=== PATIENT | female | born 1945 | race African-American/Black ===

== ENCOUNTER 2023-08-31 19:55 | Inpatient (IN) | payer MEDICARE, BC ==
[~2023-08-31] VITALS: Ht 157.5 cm; Wt 54.9 kg
[~2023-08-31 19:55] MED LIST: ACET-2708 MT; APIX2.5T PO; ASCO500C18 PO; CARV25TA47 PO; DILT120C11 PO; DOCU-150 PO; FERR325T6 PO; FOLI-43 PO; MEGE400O6 PO; PANT40TA51 PO; TOPUD PO
[2023-08-31] MEDS: SODIUM CHLORIDE 0.9% 1000ML BAG (SEPSIS BOLUS) IV ONE (20:30)
[2023-08-31 20:43] LABS: BASOPHILS % 0.8 % (0.0-2.0); EOSINOPHILS % 0.8 % (0.0-5.0); HEMATOCRIT. 31.7 % (36.0-48.0); HEMOGLOBIN. 9.6 g/dL (12.0-16.0); MEAN CORPUSCULAR HGB CONC 30.3 g/dL (31.0-37.0); MONOCYTES % 6.8 % (2.0-8.0); NEUTROPHILS % 83.6 % (40.0-76.0); POTASSIUM 4.9 mEq/L (3.5-5.1); RED BLOOD CELL COUNT 4.01 mill/uL (4.2-5.4); RED CELL DISTRIBUTION WIDTH 20.5 % (11.6-14.6); WHITE BLOOD COUNT 7.8 x1000/uL (4.5-11.0)
[2023-08-31 20:44] LABS: CALCIUM 11.9 mg/dL (8.7-10.4)
[2023-08-31 20:45] LABS: DIFFERENTIAL COMMENT 1
[2023-08-31 20:49] LABS: CREATININE 1.1 mg/dL (0.6-1.0)
[2023-08-31 20:56] LABS: PROTHROMBIN TIME 11.4 sec (9.6-11.0)
[2023-08-31 21:12] LABS: MEAN PLATELET VOLUME 10.7 fl (7.4-10.4); PLATELET 57 x1000/uL (130-400)
[2023-08-31] MEDS: VANCOMYCIN 1G PREMIX 200 ML IV ONE (21:29)
[2023-08-31 21:41] LABS: CLARITY URINE TURBID (CLEAR); COLOR URINE YELLOW (YELLOW); GLUCOSE URINE NEGATIVE (NEGATIVE); KETONES URINE NEGATIVE (NEGATIVE); LEUKOCYTE ESTERASE URINE 3+ (NEGATIVE); NITRITE URINE NEGATIVE (NEGATIVE); OCCULT BLOOD URINE 3+ (NEGATIVE); PROTEIN URINE 2+ (NEGATIVE); SPECIFIC GRAVITY URINE 1.018 (1.005-1.030); UROBILINOGEN URINE 0.2 E.U./dL (0.2-1.0)
[2023-08-31 21:57] LABS: BACTERIA URINE 4+; SQUAMOUS EPITHELIAL CELL URINE 1+ /lpf (RARE/1+)
[2023-08-31 21:58] LABS: WBC URINE TNTC /hpf (0-2); YEAST URINE 1+
[2023-08-31] MEDS ORDERED: MORPHINE SULFATE 2 MG/ML CPJ (NOT FOR IM USE) IV PRN (22:00)
[2023-08-31] MEDS ORDERED: ACETAMINOPHEN 325MG TABLET PO PRN (22:00)
[2023-08-31] MEDS ORDERED: ONDANSETRON HCL 4MG/2ML INJ IV PRN (22:00)
[2023-08-31] MEDS ORDERED: ENOXAPARIN 40MG/0.4ML SYR SUBCUT SCH (22:00)
[2023-08-31] MEDS ORDERED: HYDROCODONE/ACETAMINOPHEN 5/325MG TABLET PO PRN (22:00)
[2023-08-31] MEDS ORDERED: DOCUSATE SODIUM 100MG CAPSULE PO PRN (22:00)
[2023-08-31] MEDS ORDERED: ACETAMINOPHEN 650MG/20.3ML UDC GT PRN (22:00)
[2023-08-31 22:12] LABS: TROPONIN I HIGH SENSITIVITY 219 ng/L (3.0-34)
[2023-08-31] MEDS ORDERED: NALOXONE HCL 0.4MG/ML VIAL IV PRN (22:15)
[2023-08-31] MEDS: PIPERACILLIN/TAZO 3.375G/50ML 50 ML IV ONE (22:41)
[2023-08-31] MEDS: DILTIAZEM HCL 5MG/ML 5ML VIAL IV ONE (22:50)
[2023-08-31] MEDS: SODIUM CHLORIDE 0.9% 1,000 ML IV SCH (22:53)
[2023-08-31 23:45] VITALS: BP 155/80; PULSE 99; RESP 20; TEMP 98.4
[2023-09-01] VITALS: BP 155/80; PULSE 103; RESP 19; TEMP 98.4
[2023-09-01 04:00] VITALS: BP 147/90; PULSE 100; RESP 20; TEMP 97.9
[2023-09-01 08:00] VITALS: BP 142/93; PULSE 83; RESP 18; TEMP 97.6
[2023-09-01] MEDS ORDERED: CEFTRIAXONE 1GM/50ML 50 ML IV SCH (08:00)
[2023-09-01 08:14] LABS: CHLORIDE 117 mEq/L (98-107); SODIUM 143 mEq/L (136-145)
[2023-09-01 08:15] LABS: CARBON DIOXIDE 19 mEq/L (21-32)
[2023-09-01 08:20] LABS: GLUCOSE 92 mg/dL (70-105); UREA NITROGEN BLOOD 28 mg/dL (9-23)
[2023-09-01 08:26] LABS: HEMATOCRIT. 28.7 % (36.0-48.0); HEMOGLOBIN. 8.6 g/dL (12.0-16.0); MEAN CORPUSCULAR HEMOGLOBIN 23.6 pg (28.0-32.0); MEAN CORPUSCULAR HGB CONC 30.1 g/dL (31.0-37.0); MEAN CORPUSCULAR VOLUME 78.2 fL (81.0-99.0); RED BLOOD CELL COUNT 3.67 mill/uL (4.2-5.4); RED CELL DISTRIBUTION WIDTH 20.2 % (11.6-14.6)
[2023-09-01] MEDS: CEFTRIAXONE 1GM/50ML 50 ML IV SCH (08:28)
[2023-09-01 08:45] LABS: DIFFERENTIAL COMMENT 1
[2023-09-01 09:29] LABS: MEAN PLATELET VOLUME 10.8 fl (7.4-10.4); PLATELET 34 x1000/uL (130-400)
[2023-09-01 09:31] LABS: ANISOCYTOSIS 2+; MICROCYTOSIS 1+; PLATELET ESTIMATE MARKEDLY DECREASED
[2023-09-01 10:35] LABS: BG BASE EXCESS -4.6 mmol/L (-2.0-2.0); BG CARBOXYHEMOGLOBIN 0.3 % (0.5-1.5); BG FRACTION INSPIRED OXYGEN 21; BG HCO3 ACT 19.3 mmol/L (22.0-26.0); BG METHEMOGLOBIN 0.3 % (0.0-1.5); BG OXYHEMOGLOBIN 94.4 % (94.0-97.0); BG PCO2 30.9 mmHg (35.0-45.0); BG PH 7.413 (7.350-7.450); BG PO2 74.4 mmHg (75.0-100.0); BG SAMPLE SITE RIGHT RADIAL; BG TOTAL HEMOGLOBIN 9.3 g/dL (12.0-18.0); BG VENT MODE ROOM AIR
[2023-09-01] MEDS ORDERED: DILTIAZEM HCL PO SCH (10:45)
[2023-09-01] MEDS ORDERED: DEXTROSE 50% WATER 50ML SYRINGE IV PRN (11:45)
[2023-09-01 12:00] VITALS: BP 148/86; PULSE 92; RESP 20; TEMP 97.8
[2023-09-01] MEDS: BLOOD SUGAR DIAGNOSTIC STRIP TEST SCH (12:40)
[2023-09-01] MEDS: DILTIAZEM HCL 120MG CAPSULE ER 24HR PO SCH (12:44)
[2023-09-01] MEDS ORDERED: PIPERACILLIN/TAZO 3.375G/50ML 50 ML IV SCH (14:00)
[2023-09-01 16:00] VITALS: BP 123/93; PULSE 83; RESP 20; TEMP 97.7
[2023-09-01] MEDS ORDERED: MEDICATION NOT ON FORMULARY EA (Carvedilol 1 TAB) PO SCH (17:00)
[2023-09-01] MEDS ORDERED: MEDICATION NOT ON FORMULARY EA (Ferrous Sulfate 1 TAB) PO SCH (17:00)
[2023-09-01] MEDS: PANTOPRAZOLE SODIUM 40 MG/VIAL IV SCH (17:11)
[2023-09-01] MEDS: FERROUS SULFATE 325MG TABLET PO SCH (17:23)
[2023-09-01 18:18] LABS: IRON 30 ug/dL (50-170)
[2023-09-01 18:19] LABS: CREATINE KINASE MB FRACTION 3.9 ng/mL (0.5-3.6); FOLIC ACID (FOLATE) SERUM > 20.00 ng/mL (>5.38); LDL CHOLESTEROL 90 mg/dL (5-100); TRIGLYCERIDE 70 mg/dL (0-150)
[2023-09-01 18:20] LABS: CHOLESTEROL 128 mg/dL (<200); HDL CHOLESTEROL 38 mg/dL (>65)
[2023-09-01 18:21] LABS: TOTAL IRON BINDING CAPACITY 467 ug/dl (250-425)
[2023-09-01 18:22] LABS: FERRITIN 1419 ng/mL (10-291)
[2023-09-01 18:23] LABS: T4 FREE 1.22 ng/dL (0.89-1.76); THYROID STIMULATING HORMONE 1.08 uIU/mL (0.55-4.78)
[2023-09-01 18:34] LABS: VITAMIN B12 SERUM > 2000 pg/mL (211-911)
[2023-09-01 19:12] LABS: TROPONIN I HIGH SENSITIVITY 237 ng/L (3.0-34)
[2023-09-01 19:31] LABS: CREATINE KINASE 26 IU/L (34-145); PHOSPHORUS 1.9 mg/dL (2.5-4.9)
[2023-09-01 20:00] VITALS: BP 135/97; PULSE 77; RESP 20; TEMP 98.1
[2023-09-01] MEDS: CARVEDILOL 12.5MG TABLET PO SCH (22:24)
[2023-09-01 22:42] LABS: TROPONIN I HIGH SENSITIVITY 207 ng/L (3.0-34)
[2023-09-02] VITALS: BP 123/67; PULSE 76; RESP 18; TEMP 97.6
[2023-09-02 01:12] LABS: CREATINE KINASE MB FRACTION 2.4 ng/mL (0.5-3.6)
[2023-09-02 04:00] VITALS: BP 118/68; PULSE 76; RESP 18; TEMP 97.9
[2023-09-02 08:00] VITALS: BP 134/69; PULSE 66; RESP 20; TEMP 97.9
[2023-09-02 08:36] LABS: CHLORIDE 118 mEq/L (98-107); SODIUM 146 mEq/L (136-145)
[2023-09-02 08:37] LABS: CARBON DIOXIDE 22 mEq/L (21-32)
[2023-09-02 08:38] LABS: CALCIUM 11.6 mg/dL (8.7-10.4)
[2023-09-02 08:42] LABS: CREATININE 0.9 mg/dL (0.6-1.0); GLUCOSE 97 mg/dL (70-105)
[2023-09-02 08:43] LABS: UREA NITROGEN BLOOD 28 mg/dL (9-23)
[2023-09-02 08:44] LABS: ALANINE AMINOTRANSFERASE < 7 IU/L (10-49); ALBUMIN 3.1 g/dL (3.2-4.8); ASPARTATE AMINOTRANSFERASE 10 IU/L (<34)
[2023-09-02 08:45] LABS: BILIRUBIN TOTAL 0.2 mg/dL (0.1-1.0); PHOSPHORUS 1.4 mg/dL (2.5-4.9); PROTEIN TOTAL 5.9 g/dL (6.0-8.3)
[2023-09-02 08:53] LABS: HEMATOCRIT 27.7 % (36.0-48.0); HEMOGLOBIN 8.5 g/dL (12.0-16.0); MEAN CORPUSCULAR HEMOGLOBIN 23.7 pg (28.0-32.0); MEAN CORPUSCULAR HGB CONC 30.7 g/dL (31.0-37.0); MEAN CORPUSCULAR VOLUME 77.2 fL (81.0-99.0); PLATELET 61 x1000/uL (130-400); RED BLOOD CELL COUNT 3.59 mill/uL (4.2-5.4); RED CELL DISTRIBUTION WIDTH 20.2 % (11.6-14.6); WHITE BLOOD COUNT 6.6 x1000/uL (4.5-11.0)
[2023-09-02] MEDS: CEFTRIAXONE 1GM/50ML 50 ML IV SCH (10:11)
[2023-09-02 12:00] VITALS: BP 148/85; PULSE 69; RESP 20; TEMP 97.8
[2023-09-02 16:00] VITALS: BP 166/94; PULSE 87; RESP 18; TEMP 98.9
[2023-09-02] MEDS: CLONIDINE 0.1MG TABLET PO PRN (16:33)
[2023-09-02] MEDS: CEFAZOLIN 1000MG PREMIX 50 ML IV SCH (16:45)
[2023-09-02 20:00] VITALS: BP 172/98; PULSE 80; RESP 19; TEMP 97.2
[2023-09-03] VITALS (7 sets, daily range): BP systolic 155–171; BP diastolic 83–99; PULSE 78–83; RESP 18–19; TEMP 97.5–98.9
[2023-09-03 03:23] LABS: *AMPHETAMINES SCREEN URINE NEGATIVE (NEGATIVE); *BENZODIAZEPINES SCREEN URINE NEGATIVE (NEGATIVE)
[2023-09-03 03:24] LABS: *BARBITURATES SCREEN URINE NEGATIVE (NEGATIVE); *COCAINE SCREEN URINE NEGATIVE (NEGATIVE); CANNABINOID URINE SCREEN NEGATIVE (NEGATIVE); ECSTASY MDMA SCREEN URINE NEGATIVE (NEGATIVE); METHADONE URINE SCREEN NEGATIVE (NEGATIVE); OPIATES URINE SCREEN NEGATIVE (NEGATIVE); PHENCYCLIDINE URINE SCREEN NEGATIVE (NEGATIVE)
[2023-09-03] MEDS: HYDRALAZINE HCL 50MG TABLET PO SCH (09:12)
[2023-09-03] MEDS: VANCOMYCIN 1.25GM PMX (XELLIA) 250 ML IV NR (12:37)
[2023-09-03 13:49] LABS: CHLORIDE 116 mEq/L (98-107); POTASSIUM 4.2 mEq/L (3.5-5.1); SODIUM 142 mEq/L (136-145)
[2023-09-03 13:50] LABS: CALCIUM 11.5 mg/dL (8.7-10.4); CARBON DIOXIDE 21 mEq/L (21-32)
[2023-09-03 13:55] LABS: CREATININE 0.8 mg/dL (0.6-1.0); GLUCOSE 89 mg/dL (70-105); UREA NITROGEN BLOOD 17 mg/dL (9-23)
[2023-09-03] MEDS: LOSARTAN 25 MG TABLET PO SCH (17:25)
[2023-09-03] MEDS: FAMOTIDINE 20MG TABLET PO SCH (22:10)
[2023-09-04] VITALS (7 sets, daily range): BP systolic 153–162; BP diastolic 87–91; PULSE 75–88; RESP 18–20; TEMP 96.3–97.7; O2SAT 100
[2023-09-04 07:33] LABS: CARBON DIOXIDE 23 mEq/L (21-32); CHLORIDE 112 mEq/L (98-107); POTASSIUM 4.2 mEq/L (3.5-5.1); SODIUM 143 mEq/L (136-145)
[2023-09-04 07:34] LABS: CALCIUM 11.5 mg/dL (8.7-10.4)
[2023-09-04 07:38] LABS: CREATININE 0.9 mg/dL (0.6-1.0)
[2023-09-04 07:39] LABS: GLUCOSE 110 mg/dL (70-105); UREA NITROGEN BLOOD 24 mg/dL (9-23)
[2023-09-04 07:40] LABS: ALANINE AMINOTRANSFERASE < 7 IU/L (10-49); ALBUMIN 3.1 g/dL (3.2-4.8)
[2023-09-04 07:41] LABS: ASPARTATE AMINOTRANSFERASE 12 IU/L (<34); BILIRUBIN TOTAL 0.2 mg/dL (0.1-1.0)
[2023-09-04 08:06] LABS: BASOPHILS % 0.5 % (0.0-2.0); EOSINOPHILS % 2.1 % (0.0-5.0); HEMATOCRIT 28.4 % (36.0-48.0); HEMATOCRIT. 28.4 % (36.0-48.0); HEMOGLOBIN 8.8 g/dL (12.0-16.0); HEMOGLOBIN. 8.8 g/dL (12.0-16.0); LYMPHOCYTES % 8.6 % (20.0-50.0); MEAN CORPUSCULAR HGB CONC 30.9 g/dL (31.0-37.0); MEAN CORPUSCULAR VOLUME 77.6 fL (81.0-99.0); MONOCYTES % 7.9 % (2.0-8.0); NEUTROPHILS % 80.9 % (40.0-76.0); RED BLOOD CELL COUNT 3.67 mill/uL (4.2-5.4); RED CELL DISTRIBUTION WIDTH 19.6 % (11.6-14.6); WHITE BLOOD COUNT 6.4 x1000/uL (4.5-11.0)
[2023-09-04 09:34] LABS: DIFFERENTIAL COMMENT 1
[2023-09-04 12:01] LABS: PLATELET 31 x1000/uL (130-400)
[2023-09-04] MEDS: VANCOMYCIN 1000MG/250ML 250 ML IV SCH (12:16)
[2023-09-04] MEDS: HYDRALAZINE HCL 50MG TABLET PO SCH (14:00)
[2023-09-05] MEDS ORDERED: LOSARTAN 50 MG TABLET PO SCH (09:00)
== END 2023-09-04 19:20 | DRG 871 ==
LOC: ER 19:55 → 7WST 21:45 → EDBEDREQ 21:53
PROVIDERS: ADMIT Internal Medicine Nephrology; ATTEND Internal Medicine Nephrology
DX: A41.9 Sepsis, unspecified organism (principal); G82.50 Quadriplegia, unspecified; G93.41 Metabolic encephalopathy; I21.A1 Myocardial infarction type 2; I50.21 Acute systolic (congestive) heart failure; J18.9 Pneumonia, unspecified organism; N39.0 Urinary tract infection, site not specified; E44.1 Mild protein-calorie malnutrition; I13.0 Hypertensive heart and chronic kidney disease with heart failure and stage 1 through stage 4 chronic kidney disease, or unspecified chronic kidney disease; I42.9 Cardiomyopathy, unspecified; I48.20 Chronic atrial fibrillation, unspecified; N17.9 Acute kidney failure, unspecified; E87.20 Acidosis, unspecified; B96.20 Unspecified Escherichia coli [E. coli] as the cause of diseases classified elsewhere; D50.9 Iron deficiency anemia, unspecified; D63.8 Anemia in other chronic diseases classified elsewhere; D69.6 Thrombocytopenia, unspecified; E87.8 Other disorders of electrolyte and fluid balance, not elsewhere classified; I16.0 Hypertensive urgency; I48.0 Paroxysmal atrial fibrillation; K21.9 Gastro-esophageal reflux disease without esophagitis; M75.02 Adhesive capsulitis of left shoulder; N18.9 Chronic kidney disease, unspecified; E83.52 Hypercalcemia; R13.10 Dysphagia, unspecified; Z74.01 Bed confinement status; Z79.01 Long term (current) use of anticoagulants; Z79.899 Other long term (current) drug therapy; Z85.3 Personal history of malignant neoplasm of breast; Z86.73 Personal history of transient ischemic attack (TIA), and cerebral infarction without residual deficits; Z92.3 Personal history of irradiation; Z95.0 Presence of cardiac pacemaker; Z95.3 Presence of xenogenic heart valve; Z68.22 Body mass index [BMI] 22.0-22.9, adult; Z82.49 Family history of ischemic heart disease and other diseases of the circulatory system
CPT/HCPCS: 36415; 36600; 71045; 76770; 80048; 80053; 80061; 80305; 81003; 82375; 82550; 82553; 82607; 82728; 82746; 82805; 82962; 83036; 83540; 83550; 83605; 83735; 84100; 84145; 84439; 84443; 84484; 85025; 85027; 85379; 87077; 87186; 92610; 93005; 93306; 93308; 93970; 97162; 97166; 99285; C9113; J0690; J0696; J2543; J3370; J3490; J7030

== ENCOUNTER 2023-09-05 10:52 | Inpatient (IN) | payer MEDICARE, BC ==
[~2023-09-05] VITALS: Ht 160 cm; Wt 61.0 kg
[2023-09-05 10:56] VITALS: O2SAT 99
[2023-09-05] MEDS ORDERED: DOCUSATE SODIUM 100MG CAPSULE PO PRN (11:45)
[2023-09-05] MEDS ORDERED: IPRATROPIUM/ALBUTEROL 0.5-3(2.5)MG/3ML NEB HHN PRN (11:45)
[2023-09-05] MEDS ORDERED: MAGNESIUM/ALUMINUM HYDROXIDE/SIMETHICONE 30ML UDC PO PRN (11:45)
[2023-09-05 11:52] LABS: HEMATOCRIT. 31.2 % (36.0-48.0); HEMOGLOBIN. 9.8 g/dL (12.0-16.0); MEAN CORPUSCULAR HEMOGLOBIN 24.3 pg (28.0-32.0); MEAN CORPUSCULAR HGB CONC 31.5 g/dL (31.0-37.0); MEAN CORPUSCULAR VOLUME 77.3 fL (81.0-99.0); RED BLOOD CELL COUNT 4.04 mill/uL (4.2-5.4); RED CELL DISTRIBUTION WIDTH 19.5 % (11.6-14.6); WHITE BLOOD COUNT 9.1 x1000/uL (4.5-11.0)
[2023-09-05 11:59] LABS: DIFFERENTIAL COMMENT 1
[2023-09-05] MEDS: VANCOMYCIN 1G PREMIX 200 ML IV NR (12:00)
[2023-09-05] MEDS: CEFAZOLIN 1000MG PREMIX 50 ML IV NR (12:00)
[2023-09-05 12:03] LABS: PROTHROMBIN TIME 10.9 sec (9.6-11.0)
[2023-09-05 12:13] LABS: CHLORIDE 111 mEq/L (98-107); POTASSIUM 4.3 mEq/L (3.5-5.1); SODIUM 141 mEq/L (136-145)
[2023-09-05 12:14] LABS: CARBON DIOXIDE 23 mEq/L (21-32)
[2023-09-05 12:19] LABS: CREATININE 0.9 mg/dL (0.6-1.0); GLUCOSE 136 mg/dL (70-105); UREA NITROGEN BLOOD 23 mg/dL (9-23)
[2023-09-05 12:20] LABS: ALANINE AMINOTRANSFERASE < 7 IU/L (10-49); LACTATE DEHYDROGENASE 138 IU/L (120-246)
[2023-09-05 12:21] LABS: ALBUMIN 3.3 g/dL (3.2-4.8); ASPARTATE AMINOTRANSFERASE 12 IU/L (<34); BILIRUBIN TOTAL 0.2 mg/dL (0.1-1.0); PROTEIN TOTAL 6.6 g/dL (6.0-8.3)
[2023-09-05 12:26] LABS: BILIRUBIN DIRECT < 0.1 mg/dL (<=3.0)
[2023-09-05 12:28] LABS: TROPONIN I HIGH SENSITIVITY 186 ng/L (3.0-34)
[2023-09-05 12:45] LABS: CALCIUM 11.9 mg/dL (8.7-10.4)
[2023-09-05] MEDS: LOSARTAN 25 MG TABLET PO SCH (13:00)
[2023-09-05 14:04] LABS: ANISOCYTOSIS 2+; MICROCYTOSIS 1+
[2023-09-05 14:05] LABS: PLATELET ESTIMATE MARKEDLY DECREASED
[2023-09-05 14:06] LABS: MEAN PLATELET VOLUME 11.1 fl (7.4-10.4)
[2023-09-05 14:07] LABS: PLATELET 35 x1000/uL (130-400)
[2023-09-05] MEDS ORDERED: NALOXONE HCL 0.4MG/ML VIAL IV PRN (16:00)
[2023-09-05] MEDS ORDERED: DILTIAZEM HCL 5MG/ML 5ML VIAL IV NR (16:45)
[2023-09-05] MEDS ORDERED: DEXTROSE 50% WATER 50ML SYRINGE IV PRN (16:45)
[2023-09-05 16:59] LABS: PHOSPHORUS 1.2 mg/dL (2.5-4.9)
[2023-09-05] MEDS ORDERED: MEDICATION NOT ON FORMULARY EA (Ferrous Sulfate 1 TAB) PO SCH (17:00)
[2023-09-05] MEDS: FERROUS SULFATE 325MG TABLET PO SCH (17:00)
[2023-09-05 17:20] LABS: CLARITY URINE CLOUDY (CLEAR); COLOR URINE YELLOW (YELLOW); GLUCOSE URINE NEGATIVE (NEGATIVE); KETONES URINE NEGATIVE (NEGATIVE); LEUKOCYTE ESTERASE URINE 2+ (NEGATIVE); NITRITE URINE NEGATIVE (NEGATIVE); OCCULT BLOOD URINE NEGATIVE (NEGATIVE); PH URINE 5.5 (4.5-8.0); PROTEIN URINE 2+ (NEGATIVE); SPECIFIC GRAVITY URINE 1.017 (1.005-1.030); UROBILINOGEN URINE 0.2 E.U./dL (0.2-1.0)
[2023-09-05] MEDS: BLOOD SUGAR DIAGNOSTIC STRIP TEST SCH (17:22)
[2023-09-05 17:23] LABS: BG BASE EXCESS -0.5 mmol/L (-2.0-2.0); BG CARBOXYHEMOGLOBIN 0.3 % (0.5-1.5); BG DEOXYHEMOGLOBIN 2.2 % (0.0-5.0); BG FRACTION INSPIRED OXYGEN 21; BG HCO3 ACT 21.6 mmol/L (22.0-26.0); BG METHEMOGLOBIN 0.1 % (0.0-1.5); BG OXYGEN SATURATION 97.8 % (92.0-98.5); BG OXYHEMOGLOBIN 97.4 % (94.0-97.0); BG PCO2 26.9 mmHg (35.0-45.0); BG PH 7.522 (7.350-7.450); BG PO2 96.3 mmHg (75.0-100.0); BG SAMPLE SITE RIGHT BRACHIAL; BG TOTAL HEMOGLOBIN 9.9 g/dL (12.0-18.0); BG VENT MODE ROOM AIR
[2023-09-05] MEDS ORDERED: HYDRALAZINE 20MG/ML VIAL IV PRN (17:30)
[2023-09-05 17:54] LABS: BACTERIA URINE NONE SEEN; RBC URINE NONE SEEN /hpf (0-2); WBC URINE 50-100 /hpf (0-2); YEAST URINE 2+
[2023-09-05 18:04] LABS: CREATINE KINASE MB FRACTION 2.1 ng/mL (0.5-3.6)
[2023-09-05] MEDS: MORPHINE SULFATE 2 MG/ML CPJ (NOT FOR IM USE) IV PRN (18:27)
[2023-09-05] MEDS ORDERED: CEFEPIME 1GM/50ML 50 ML IV SCH (18:30)
[2023-09-05] MEDS: NALOXONE HCL 1MG/ML 2ML VIAL IV NR (19:57)
[2023-09-05] MEDS ORDERED: CEFAZOLIN 1000MG PREMIX 50 ML IV SCH (20:00)
[2023-09-05 20:20] VITALS: PULSE 164; RESP 14
[2023-09-05] MEDS ORDERED: FENTANYL 2500MCG/250ML PMX 250 ML IV PRN ×2 (20:30)
[2023-09-05] MEDS ORDERED: MIDAZOLAM 100MG/100ML PMX 100 ML IV PRN (20:30)
[2023-09-05] MEDS: MIDAZOLAM 100MG/100ML PMX 100 ML IV PRN (20:51)
[2023-09-05] MEDS ORDERED: FAMOTIDINE 20MG TABLET PO SCH (21:00)
[2023-09-05] MEDS ORDERED: CARVEDILOL 12.5MG TABLET PO SCH (21:00)
[2023-09-05] MEDS ORDERED: CARVEDILOL 12.5MG TABLET NG SCH (21:00)
[2023-09-05 21:20] LABS: BG BASE EXCESS -4.7 mmol/L (-2.0-2.0); BG CARBOXYHEMOGLOBIN 0.2 % (0.5-1.5); BG DEOXYHEMOGLOBIN 2.1 % (0.0-5.0); BG FRACTION INSPIRED OXYGEN 35; BG HCO3 ACT 19.6 mmol/L (22.0-26.0); BG METHEMOGLOBIN 1.1 % (0.0-1.5); BG OXYGEN SATURATION 97.9 % (92.0-98.5); BG OXYHEMOGLOBIN 96.6 % (94.0-97.0); BG PCO2 33.3 mmHg (35.0-45.0); BG PH 7.387 (7.350-7.450); BG PO2 115.9 mmHg (75.0-100.0); BG SAMPLE SITE RIGHT BRACHIAL; BG TOTAL HEMOGLOBIN 10.4 g/dL (12.0-18.0); BG VENT MODE VENT - AC
[2023-09-05 22:00] VITALS: PULSE 118; RESP 14
[2023-09-05] MEDS ORDERED: LEVETIRACETAM 500 MG in SODIUM CHLORIDE 0.9% 100 ML IV SCH (23:15)
[2023-09-05] MEDS: MEROPENEM 1G/100ML 100 ML IV SCH (23:54)
[2023-09-06] VITALS (102 sets, daily range): BP systolic 102–179; BP diastolic 71–166; PULSE 82–147; RESP 13–29; TEMP 96.4–98.8
[2023-09-06] MEDS: IPRATROPIUM BROMIDE (0.02%) 0.5MG/2.5ML NEB HHN SCH
[2023-09-06] MEDS: SODIUM PHOSPHATE 20 MMOL in DEXT 5% WATER 243.3333 ML IV NR (00:58)
[2023-09-06] MEDS: LEVETIRACETAM 500MG PREMIX 100 ML IV SCH ×2 (00:59→10:54)
[2023-09-06] MEDS: LORAZEPAM 2MG/ML INJ IV PRN (01:48)
[2023-09-06] MEDS ORDERED: AMIODARONE HCL 150 MG in DEXT 5% WATER 97 ML IV ONE (02:30)
[2023-09-06] MEDS ORDERED: AMIODARONE 150MG/100ML 100 ML IV NR (02:30)
[2023-09-06] MEDS: AMIODARONE 150MG/100ML 100 ML IV NR (02:51)
[2023-09-06] MEDS: AMIODARONE HCL 900 MG in DEXT 5% WATER 482 ML IV PRN (03:14)
[2023-09-06 05:55] LABS: *AMPHETAMINES SCREEN URINE NEGATIVE (NEGATIVE); *BARBITURATES SCREEN URINE NEGATIVE (NEGATIVE); *BENZODIAZEPINES SCREEN URINE PRESUMPTIVE POSITIVE (NEGATIVE)
[2023-09-06 05:56] LABS: *COCAINE SCREEN URINE NEGATIVE (NEGATIVE); CANNABINOID URINE SCREEN NEGATIVE (NEGATIVE); ECSTASY MDMA SCREEN URINE NEGATIVE (NEGATIVE); METHADONE URINE SCREEN NEGATIVE (NEGATIVE); OPIATES URINE SCREEN PRESUMPTIVE POSITIVE (NEGATIVE); PHENCYCLIDINE URINE SCREEN NEGATIVE (NEGATIVE)
[2023-09-06 06:34] LABS: HEMATOCRIT 32.6 % (36.0-48.0); HEMOGLOBIN 9.7 g/dL (12.0-16.0); MEAN CORPUSCULAR HEMOGLOBIN 23.7 pg (28.0-32.0); MEAN CORPUSCULAR HGB CONC 29.9 g/dL (31.0-37.0); MEAN CORPUSCULAR VOLUME 79.4 fL (81.0-99.0); PLATELET 80 x1000/uL (130-400); RED CELL DISTRIBUTION WIDTH 19.9 % (11.6-14.6); WHITE BLOOD COUNT 12.7 x1000/uL (4.5-11.0)
[2023-09-06 06:54] LABS: CHLORIDE 108 mEq/L (98-107); POTASSIUM 4.6 mEq/L (3.5-5.1); SODIUM 142 mEq/L (136-145)
[2023-09-06 06:58] LABS: CALCIUM 12.1 mg/dL (8.7-10.4); CARBON DIOXIDE 25 mEq/L (21-32)
[2023-09-06 06:59] LABS: CREATINE KINASE MB FRACTION 4.8 ng/mL (0.5-3.6)
[2023-09-06 07:03] LABS: CREATININE 0.8 mg/dL (0.6-1.0); GLUCOSE 116 mg/dL (70-105); UREA NITROGEN BLOOD 24 mg/dL (9-23)
[2023-09-06 07:04] LABS: ALANINE AMINOTRANSFERASE < 7 IU/L (10-49)
[2023-09-06 07:05] LABS: ALBUMIN 3.5 g/dL (3.2-4.8); ASPARTATE AMINOTRANSFERASE 11 IU/L (<34); BILIRUBIN TOTAL 0.2 mg/dL (0.1-1.0); CREATINE KINASE 39 IU/L (34-145); PHOSPHORUS 2.1 mg/dL (2.5-4.9); PROTEIN TOTAL 6.7 g/dL (6.0-8.3)
[2023-09-06 07:34] LABS: BG BASE EXCESS -0.5 mmol/L (-2.0-2.0); BG CARBOXYHEMOGLOBIN 0.3 % (0.5-1.5); BG DEOXYHEMOGLOBIN 1.1 % (0.0-5.0); BG FRACTION INSPIRED OXYGEN 35; BG HCO3 ACT 23.6 mmol/L (22.0-26.0); BG METHEMOGLOBIN 0.3 % (0.0-1.5); BG OXYGEN SATURATION 98.9 % (92.0-98.5); BG OXYHEMOGLOBIN 98.3 % (94.0-97.0); BG PCO2 36.7 mmHg (35.0-45.0); BG PH 7.427 (7.350-7.450); BG PO2 142.2 mmHg (75.0-100.0); BG SAMPLE SITE RIGHT BRACHIAL; BG TOTAL HEMOGLOBIN 9.3 g/dL (12.0-18.0)
[2023-09-06 08:11] LABS: TROPONIN I HIGH SENSITIVITY 189 ng/L (3.0-34)
[2023-09-06] MEDS: LOSARTAN 25 MG TABLET NG SCH (08:54)
[2023-09-06] MEDS: PANTOPRAZOLE SODIUM 40 MG/VIAL IV SCH (08:54)
[2023-09-06] MEDS ORDERED: CEFEPIME 1GM IN DEXT 5% 50ML IV SCH (09:00)
[2023-09-06] MEDS ORDERED: CEFEPIME 2GM/100ML 100 ML IV SCH (09:00)
[2023-09-06] MEDS ORDERED: SODIUM CHLORIDE 3% FOR INH 4ML NEB INH SCH (09:00)
[2023-09-06] MEDS ORDERED: FOLIC ACID 1MG TABLET PO SCH (09:00)
[2023-09-06 15:09] LABS: CREATINE KINASE MB FRACTION 4.6 ng/mL (0.5-3.6)
[2023-09-06] MEDS: VANCOMYCIN 750MG/150ML IV SCH (15:25)
[2023-09-06] MEDS: BLOOD SUGAR DIAGNOSTIC STRIP TEST SCH (17:38)
[2023-09-06] MEDS: CLONIDINE 0.1MG TABLET PO PRN (20:37)
[2023-09-06] MEDS: DEXT 5%/0.45% NACL 1000ML 1,000 ML IV SCH (22:06)
[2023-09-07] VITALS (79 sets, daily range): BP systolic 121–176; BP diastolic 71–146; PULSE 66–140; RESP 14–32; TEMP 97–97.7
[2023-09-07 06:12] LABS: POTASSIUM 4.8 mEq/L (3.5-5.1)
[2023-09-07 06:14] LABS: CALCIUM 11.4 mg/dL (8.7-10.4)
[2023-09-07 06:18] LABS: CREATININE 1.2 mg/dL (0.6-1.0)
[2023-09-07] MEDS: MEROPENEM 1G/100ML 100 ML IV SCH (07:00)
[2023-09-07] MEDS: METOPROLOL TARTRATE 50MG TABLET PO SCH (08:10)
[2023-09-07] MEDS: LACTATED RINGERS 250 ML IV ONE (08:50)
[2023-09-07 09:00] LABS: HEMATOCRIT. 27.8 % (36.0-48.0); HEMOGLOBIN. 8.5 g/dL (12.0-16.0); MEAN CORPUSCULAR HEMOGLOBIN 23.9 pg (28.0-32.0); MEAN CORPUSCULAR HGB CONC 30.6 g/dL (31.0-37.0); MEAN CORPUSCULAR VOLUME 78.1 fL (81.0-99.0); MEAN PLATELET VOLUME 16.5 fl (7.4-10.4); RED BLOOD CELL COUNT 3.55 mill/uL (4.2-5.4); WHITE BLOOD COUNT 11.9 x1000/uL (4.5-11.0)
[2023-09-07 09:05] LABS: DIFFERENTIAL COMMENT 1
[2023-09-07 10:01] LABS: BG BASE EXCESS -1.5 mmol/L (-2.0-2.0); BG CARBOXYHEMOGLOBIN 0.3 % (0.5-1.5); BG DEOXYHEMOGLOBIN 0.8 % (0.0-5.0); BG FRACTION INSPIRED OXYGEN 35; BG HCO3 ACT 21.7 mmol/L (22.0-26.0); BG METHEMOGLOBIN 0.3 % (0.0-1.5); BG OXYGEN SATURATION 99.2 % (92.0-98.5); BG OXYHEMOGLOBIN 98.6 % (94.0-97.0); BG PCO2 30.7 mmHg (35.0-45.0); BG PH 7.468 (7.350-7.450); BG PO2 159.9 mmHg (75.0-100.0); BG SAMPLE SITE RIGHT RADIAL; BG TOTAL HEMOGLOBIN 8.8 g/dL (12.0-18.0); BG VENT MODE VENT - AC
[2023-09-07 10:12] LABS: ANISOCYTOSIS 2+; MICROCYTOSIS 1+
[2023-09-07 10:13] LABS: GIANT PLATELETS FEW; PLATELET 107 x1000/uL (130-400); PLATELET ESTIMATE DECREASED
[2023-09-07] MEDS: DIGOXIN 500MCG/2ML AMP IV NR (10:52)
[2023-09-07] MEDS: DEXT 5%/0.45% NACL 1000ML 1,000 ML IV SCH (10:58)
[2023-09-07] MEDS: HYDRALAZINE HCL 25MG TABLET PO SCH (12:24)
[2023-09-07] MEDS: VANCOMYCIN 500MG/100ML IV SCH (17:01)
[2023-09-07] MEDS: HYDRALAZINE 20MG/ML VIAL IV PRN (17:46)
[2023-09-07] MEDS: BLOOD SUGAR DIAGNOSTIC STRIP TEST SCH (20:00)
[2023-09-08] VITALS (84 sets, daily range): BP systolic 74–187; BP diastolic 48–110; PULSE 60–99; RESP 14–30; TEMP 97.6–98.5
[2023-09-08 05:45] LABS: HEMATOCRIT 29.1 % (36.0-48.0); HEMOGLOBIN 8.9 g/dL (12.0-16.0); MEAN CORPUSCULAR HEMOGLOBIN 24.1 pg (28.0-32.0); MEAN CORPUSCULAR HGB CONC 30.6 g/dL (31.0-37.0); MEAN CORPUSCULAR VOLUME 78.5 fL (81.0-99.0); PLATELET 70 x1000/uL (130-400); RED BLOOD CELL COUNT 3.71 mill/uL (4.2-5.4)
[2023-09-08 06:08] LABS: CHLORIDE 107 mEq/L (98-107); POTASSIUM 4.2 mEq/L (3.5-5.1); SODIUM 137 mEq/L (136-145)
[2023-09-08 06:09] LABS: CARBON DIOXIDE 22 mEq/L (21-32)
[2023-09-08 06:14] LABS: CREATININE 1.1 mg/dL (0.6-1.0); GLUCOSE 93 mg/dL (70-105); UREA NITROGEN BLOOD 27 mg/dL (9-23)
[2023-09-08 06:16] LABS: PHOSPHORUS 2.6 mg/dL (2.5-4.9)
[2023-09-08] MEDS: MAGNESIUM 2 G PREMIX 50 ML IV ONE (08:08)
[2023-09-08 09:10] LABS: BG BASE EXCESS -4.6 mmol/L (-2.0-2.0); BG CARBOXYHEMOGLOBIN 0.1 % (0.5-1.5); BG DEOXYHEMOGLOBIN 0.6 % (0.0-5.0); BG FRACTION INSPIRED OXYGEN 35; BG METHEMOGLOBIN 0.3 % (0.0-1.5); BG OXYGEN SATURATION 99.4 % (92.0-98.5); BG PCO2 30.4 mmHg (35.0-45.0); BG PH 7.414 (7.350-7.450); BG PO2 178.4 mmHg (75.0-100.0); BG SAMPLE SITE RIGHT RADIAL; BG TOTAL HEMOGLOBIN 10.7 g/dL (12.0-18.0); BG VENT MODE VENT - AC
[2023-09-08] MEDS: LOSARTAN 25 MG TABLET NG SCH (10:37)
[2023-09-08] MEDS: CLONIDINE 0.2MG TABLET NG SCH (13:20)
[2023-09-08] MEDS: HYDRALAZINE HCL 25MG TABLET PO SCH (13:20)
[2023-09-08] MEDS ORDERED: NOREPINEPHRINE 8MG/250ML PMX 250 ML IV PRN (15:15)
[2023-09-08] MEDS: ONDANSETRON HCL 4MG/2ML INJ IV PRN (15:39)
[2023-09-08 16:11] LABS: TROPONIN I HIGH SENSITIVITY 252 ng/L (3.0-34)
[2023-09-08] MEDS: FAMOTIDINE 20MG TABLET NG SCH (21:06)
[2023-09-09] VITALS (62 sets, daily range): BP systolic 112–200; BP diastolic 60–170; PULSE 68–110; RESP 14–28; TEMP 97.6–98.4
[2023-09-09 05:25] LABS: CARBON DIOXIDE 22 mEq/L (21-32); CHLORIDE 110 mEq/L (98-107); POTASSIUM 4.1 mEq/L (3.5-5.1); SODIUM 139 mEq/L (136-145)
[2023-09-09 05:26] LABS: CALCIUM 10.4 mg/dL (8.7-10.4)
[2023-09-09 05:31] LABS: GLUCOSE 96 mg/dL (70-105); UREA NITROGEN BLOOD 26 mg/dL (9-23)
[2023-09-09 05:32] LABS: ALANINE AMINOTRANSFERASE < 7 IU/L (10-49); ASPARTATE AMINOTRANSFERASE 14 IU/L (<34)
[2023-09-09 05:33] LABS: ALBUMIN 2.7 g/dL (3.2-4.8); BILIRUBIN TOTAL 0.2 mg/dL (0.1-1.0); PHOSPHORUS 2.2 mg/dL (2.5-4.9); PROTEIN TOTAL 5.7 g/dL (6.0-8.3)
[2023-09-09 09:27] LABS: HEMATOCRIT 27.8 % (36.0-48.0); HEMOGLOBIN 8.6 g/dL (12.0-16.0); MEAN CORPUSCULAR HEMOGLOBIN 23.9 pg (28.0-32.0); MEAN CORPUSCULAR HGB CONC 30.9 g/dL (31.0-37.0); MEAN CORPUSCULAR VOLUME 77.2 fL (81.0-99.0); RED BLOOD CELL COUNT 3.61 mill/uL (4.2-5.4); WHITE BLOOD COUNT 8.4 x1000/uL (4.5-11.0)
[2023-09-09 10:28] LABS: PLATELET 27 x1000/uL (130-400)
[2023-09-09] MEDS: VANCOMYCIN 750MG PREMIX 150 ML IV SCH (12:28)
[2023-09-09 13:27] LABS: GLYCOPROTEIN IV AB Negative (Negative); HLA CLASS 1 ANTIBODY Negative (Negative); IIb/IIIa ANTIBODY Positive (Negative); Ib/IX ANTIBODY Negative (Negative)
[2023-09-09] MEDS: LEVETIRACETAM 750 MG in SODIUM CHLORIDE 0.9% 100 ML IV SCH (17:00)
[2023-09-09] MEDS ORDERED: LORAZEPAM 2MG/ML INJ IV PRN (20:15)
[2023-09-09] MEDS: HYDRALAZINE HCL 25MG TABLET PO SCH (21:21)
[2023-09-10] VITALS (65 sets, daily range): BP systolic 130–179; BP diastolic 69–102; PULSE 73–107; RESP 16–29; TEMP 97.8–98.9
[2023-09-10 05:48] LABS: HEMATOCRIT 29.9 % (36.0-48.0); HEMOGLOBIN 9.2 g/dL (12.0-16.0); MEAN CORPUSCULAR HEMOGLOBIN 23.8 pg (28.0-32.0); MEAN CORPUSCULAR HGB CONC 30.8 g/dL (31.0-37.0); MEAN CORPUSCULAR VOLUME 77.3 fL (81.0-99.0); RED BLOOD CELL COUNT 3.87 mill/uL (4.2-5.4); RED CELL DISTRIBUTION WIDTH 19.2 % (11.6-14.6)
[2023-09-10 06:05] LABS: CHLORIDE 111 mEq/L (98-107); POTASSIUM 4.2 mEq/L (3.5-5.1); SODIUM 140 mEq/L (136-145)
[2023-09-10 06:06] LABS: CALCIUM 10.5 mg/dL (8.7-10.4); CARBON DIOXIDE 22 mEq/L (21-32)
[2023-09-10 06:11] LABS: CREATININE 0.9 mg/dL (0.6-1.0); GLUCOSE 91 mg/dL (70-105); UREA NITROGEN BLOOD 25 mg/dL (9-23)
[2023-09-10 06:13] LABS: ALANINE AMINOTRANSFERASE < 7 IU/L (10-49); ALBUMIN 2.9 g/dL (3.2-4.8); ASPARTATE AMINOTRANSFERASE 14 IU/L (<34); BILIRUBIN TOTAL 0.2 mg/dL (0.1-1.0); PROTEIN TOTAL 5.9 g/dL (6.0-8.3)
[2023-09-10 06:32] LABS: PLATELET 13 x1000/uL (130-400)
[2023-09-10] MEDS ORDERED: PHENOBARBITAL SODIUM 65MG/ML 1ML IV SCH (09:00)
[2023-09-10] MEDS: GADOTERATE MEGLUMINE 5 MMOL/10 ML VIAL IV ONE (18:11)
[2023-09-10] MEDS: PHENOBARBITAL SODIUM 130MG/ML 1ML IV NR (18:38)
[2023-09-10] MEDS: VANCOMYCIN 500MG PREMIX 100 ML IV SCH (20:23)
[2023-09-10] MEDS: LEVETIRACETAM 1,500 MG in SODIUM CHLORIDE 0.9% 100 ML IV SCH (21:11)
[2023-09-11] VITALS (64 sets, daily range): BP systolic 134–178; BP diastolic 73–108; PULSE 68–95; RESP 14–28; TEMP 98–99
[2023-09-11 05:32] LABS: HEMATOCRIT 28.7 % (36.0-48.0); HEMOGLOBIN 8.8 g/dL (12.0-16.0); MEAN CORPUSCULAR HGB CONC 30.8 g/dL (31.0-37.0); MEAN CORPUSCULAR VOLUME 77.8 fL (81.0-99.0); RED BLOOD CELL COUNT 3.69 mill/uL (4.2-5.4); RED CELL DISTRIBUTION WIDTH 18.8 % (11.6-14.6); WHITE BLOOD COUNT 10.6 x1000/uL (4.5-11.0)
[2023-09-11 05:37] LABS: PLATELET 9 x1000/uL (130-400)
[2023-09-11 05:49] LABS: CARBON DIOXIDE 23 mEq/L (21-32); CHLORIDE 111 mEq/L (98-107); POTASSIUM 4.3 mEq/L (3.5-5.1); SODIUM 139 mEq/L (136-145)
[2023-09-11 05:50] LABS: CALCIUM 10.2 mg/dL (8.7-10.4)
[2023-09-11 05:55] LABS: CREATININE 0.9 mg/dL (0.6-1.0); GLUCOSE 114 mg/dL (70-105); UREA NITROGEN BLOOD 25 mg/dL (9-23)
[2023-09-11 08:57] LABS: BG BASE EXCESS -1.4 mmol/L (-2.0-2.0); BG CARBOXYHEMOGLOBIN 0.3 % (0.5-1.5); BG DEOXYHEMOGLOBIN 1.6 % (0.0-5.0); BG FRACTION INSPIRED OXYGEN 30; BG HCO3 ACT 22.5 mmol/L (22.0-26.0); BG METHEMOGLOBIN 0.1 % (0.0-1.5); BG OXYGEN SATURATION 98.4 % (92.0-98.5); BG PCO2 34.6 mmHg (35.0-45.0); BG PH 7.431 (7.350-7.450); BG PO2 111.2 mmHg (75.0-100.0); BG SAMPLE SITE ALINE; BG TOTAL HEMOGLOBIN 9.8 g/dL (12.0-18.0); BG VENT MODE VENT - SIMV
[2023-09-11] MEDS: PHENOBARBITAL SODIUM 65MG/ML 1ML IV SCH (09:04)
[2023-09-11] MEDS: FUROSEMIDE 20MG/2ML VIAL IVP NR ×2 (10:45→14:30)
[2023-09-11 11:38] LABS: BG BASE EXCESS -0.8 mmol/L (-2.0-2.0); BG CARBOXYHEMOGLOBIN 0.1 % (0.5-1.5); BG DEOXYHEMOGLOBIN 1.6 % (0.0-5.0); BG FRACTION INSPIRED OXYGEN 30; BG HCO3 ACT 23.6 mmol/L (22.0-26.0); BG METHEMOGLOBIN 0.3 % (0.0-1.5); BG OXYGEN SATURATION 98.4 % (92.0-98.5); BG PH 7.411 (7.350-7.450); BG SAMPLE SITE RIGHT RADIAL; BG TOTAL HEMOGLOBIN 9.7 g/dL (12.0-18.0); BG VENT MODE VENT - CPAP
[2023-09-11 12:57] LABS: AMMONIA 25 uMol/L (<32)
[2023-09-11] MEDS: LACTULOSE 20G/30ML UDC PO SCH (14:00)
[2023-09-12] VITALS (72 sets, daily range): BP systolic 123–171; BP diastolic 74–113; PULSE 70–91; RESP 13–26; TEMP 98.6–99.1
[2023-09-12 06:23] LABS: MEAN CORPUSCULAR HEMOGLOBIN 23.8 pg (28.0-32.0); MEAN CORPUSCULAR VOLUME 79.4 fL (81.0-99.0); RED CELL DISTRIBUTION WIDTH 18.4 % (11.6-14.6); WHITE BLOOD COUNT 7.3 x1000/uL (4.5-11.0)
[2023-09-12 06:30] LABS: HEMATOCRIT 20.6 % (36.0-48.0); HEMOGLOBIN 6.2 g/dL (12.0-16.0); PLATELET 12 x1000/uL (130-400)
[2023-09-12 06:35] LABS: CHLORIDE 109 mEq/L (98-107); POTASSIUM 3.8 mEq/L (3.5-5.1); SODIUM 141 mEq/L (136-145)
[2023-09-12 06:39] LABS: CARBON DIOXIDE 25 mEq/L (21-32)
[2023-09-12 06:44] LABS: CREATININE 0.8 mg/dL (0.6-1.0); GLUCOSE 145 mg/dL (70-105); UREA NITROGEN BLOOD 26 mg/dL (9-23)
[2023-09-12 06:46] LABS: ALANINE AMINOTRANSFERASE < 7 IU/L (10-49); ALBUMIN 2.8 g/dL (3.2-4.8); ASPARTATE AMINOTRANSFERASE 17 IU/L (<34); BILIRUBIN TOTAL 0.2 mg/dL (0.1-1.0)
[2023-09-12 06:47] LABS: PROTEIN TOTAL 5.6 g/dL (6.0-8.3)
[2023-09-12] MEDS: POTASSIUM PHOSPHATE 20 MMOL in DEXT 5% WATER 243.3333 ML IV NR (09:08)
[2023-09-12] MEDS: EPOETIN ALFA-EPBX 10,000 UNIT/ML VIAL SUBCUT SCH (21:24)
[2023-09-12] MEDS: LIDOCAINE HCL 1% 10 MG/ML 10ML VIAL ONE ×2 (21:31→21:32)
[2023-09-12] MEDS: HEPARIN 1000 UNITS/ML 10ML ONE (21:32)
[2023-09-13] VITALS (78 sets, daily range): BP systolic 111–165; BP diastolic 67–122; PULSE 69–82; RESP 13–29; TEMP 98.2–99.5
[2023-09-13 09:03] LABS: CHLORIDE 108 mEq/L (98-107); POTASSIUM 4.5 mEq/L (3.5-5.1); SODIUM 140 mEq/L (136-145)
[2023-09-13 09:04] LABS: CARBON DIOXIDE 27 mEq/L (21-32)
[2023-09-13 09:05] LABS: CALCIUM 9.6 mg/dL (8.7-10.4)
[2023-09-13 09:09] LABS: CREATININE 0.8 mg/dL (0.6-1.0); GLUCOSE 118 mg/dL (70-105); UREA NITROGEN BLOOD 25 mg/dL (9-23)
[2023-09-13 09:36] LABS: HEMATOCRIT. 27.1 % (36.0-48.0); HEMOGLOBIN. 8.5 g/dL (12.0-16.0); MEAN CORPUSCULAR HGB CONC 31.5 g/dL (31.0-37.0); MEAN CORPUSCULAR VOLUME 76.1 fL (81.0-99.0); MEAN PLATELET VOLUME 13.5 fl (7.4-10.4); RED BLOOD CELL COUNT 3.56 mill/uL (4.2-5.4); RED CELL DISTRIBUTION WIDTH 18.9 % (11.6-14.6); WHITE BLOOD COUNT 9.5 x1000/uL (4.5-11.0)
[2023-09-13 09:40] LABS: DIFFERENTIAL COMMENT 1
[2023-09-13 09:44] LABS: PLATELET 14 x1000/uL (130-400)
[2023-09-13 20:16] LABS: NUCLEATED RED BLOOD CELLS 1 /100 WBC
[2023-09-13 20:17] LABS: ANISOCYTOSIS 2+; HYPOCHROMASIA 1+; MICROCYTOSIS 1+; OVALOCYTES 1+; PLATELET ESTIMATE MARKEDLY DECREASED
[2023-09-14] VITALS (84 sets, daily range): BP systolic 112–155; BP diastolic 63–114; PULSE 66–82; RESP 12–29; TEMP 97.2–98.4
[2023-09-14] MEDS: ACETAMINOPHEN 325MG TABLET PO PRN (00:48)
[2023-09-14 07:17] LABS: CARBON DIOXIDE 28 mEq/L (21-32); CHLORIDE 108 mEq/L (98-107); POTASSIUM 4.8 mEq/L (3.5-5.1); SODIUM 142 mEq/L (136-145)
[2023-09-14 07:18] LABS: CALCIUM 9.4 mg/dL (8.7-10.4)
[2023-09-14 07:20] LABS: BASOPHILS % 0.5 % (0.0-2.0); EOSINOPHILS % 1.7 % (0.0-5.0); HEMATOCRIT. 24.1 % (36.0-48.0); HEMOGLOBIN. 7.5 g/dL (12.0-16.0); LYMPHOCYTES % 7.6 % (20.0-50.0); MEAN CORPUSCULAR HEMOGLOBIN 23.8 pg (28.0-32.0); MEAN CORPUSCULAR HGB CONC 31.1 g/dL (31.0-37.0); MEAN CORPUSCULAR VOLUME 76.4 fL (81.0-99.0); MONOCYTES % 9.6 % (2.0-8.0); NEUTROPHILS % 80.6 % (40.0-76.0); RED BLOOD CELL COUNT 3.16 mill/uL (4.2-5.4); RED CELL DISTRIBUTION WIDTH 18.2 % (11.6-14.6); WHITE BLOOD COUNT 7.9 x1000/uL (4.5-11.0)
[2023-09-14 07:23] LABS: CREATININE 0.8 mg/dL (0.6-1.0); GLUCOSE 133 mg/dL (70-105); UREA NITROGEN BLOOD 25 mg/dL (9-23)
[2023-09-14 07:32] LABS: DIFFERENTIAL COMMENT 1
[2023-09-14 07:33] LABS: PLATELET 14 x1000/uL (130-400)
[2023-09-14 08:45] LABS: BG BASE EXCESS 3.2 mmol/L (-2.0-2.0); BG CARBOXYHEMOGLOBIN 0.5 % (0.5-1.5); BG DEOXYHEMOGLOBIN 1.1 % (0.0-5.0); BG FRACTION INSPIRED OXYGEN 30; BG HCO3 ACT 26.9 mmol/L (22.0-26.0); BG METHEMOGLOBIN 0.4 % (0.0-1.5); BG OXYGEN SATURATION 98.9 % (92.0-98.5); BG PH 7.479 (7.350-7.450); BG PO2 140.8 mmHg (75.0-100.0); BG SAMPLE SITE ALINE; BG TOTAL HEMOGLOBIN 7.9 g/dL (12.0-18.0); BG TOTAL RESPIRATORY RATE 16 b/min; BG VENT MODE VENT - SIMV
[2023-09-14] MEDS ORDERED: CLONIDINE HCL 0.1MG/24HR PATCH TD SCH (09:00)
[2023-09-14] MEDS: LANSOPRAZOLE 30MG DR CAPSULE GT SCH (09:02)
[2023-09-15] VITALS (49 sets, daily range): BP systolic 100–154; BP diastolic 60–92; PULSE 60–77; RESP 12–24; TEMP 96.8–98.2
[2023-09-15 12:38] LABS: BG BASE EXCESS 3.9 mmol/L (-2.0-2.0); BG CARBOXYHEMOGLOBIN 0.1 % (0.5-1.5); BG DEOXYHEMOGLOBIN 1.1 % (0.0-5.0); BG FRACTION INSPIRED OXYGEN 35; BG HCO3 ACT 27.9 mmol/L (22.0-26.0); BG METHEMOGLOBIN 0.3 % (0.0-1.5); BG OXYGEN SATURATION 98.9 % (92.0-98.5); BG OXYHEMOGLOBIN 98.5 % (94.0-97.0); BG PCO2 39.1 mmHg (35.0-45.0); BG PH 7.471 (7.350-7.450); BG SAMPLE SITE ALINE; BG TOTAL HEMOGLOBIN 8.2 g/dL (12.0-18.0); BG VENT MODE VENT - CPAP
[2023-09-16] VITALS (25 sets, daily range): BP systolic 120–161; BP diastolic 63–100; PULSE 68–78; RESP 12–25; TEMP 97.2–97.8
[2023-09-16] MEDS: LEVETIRACETAM 500MG/5ML CUP NG SCH (21:04)
[2023-09-17] VITALS (28 sets, daily range): BP systolic 104–168; BP diastolic 64–111; PULSE 64–79; RESP 12–23; TEMP 97.2–98.5
[2023-09-17 05:43] LABS: BASOPHILS % 0.6 % (0.0-2.0); EOSINOPHILS % 2.5 % (0.0-5.0); HEMATOCRIT. 27.4 % (36.0-48.0); HEMOGLOBIN. 8.3 g/dL (12.0-16.0); LYMPHOCYTES % 8.2 % (20.0-50.0); MEAN CORPUSCULAR HEMOGLOBIN 24.2 pg (28.0-32.0); MEAN CORPUSCULAR HGB CONC 30.2 g/dL (31.0-37.0); MEAN PLATELET VOLUME 13.7 fl (7.4-10.4); MONOCYTES % 10.4 % (2.0-8.0); NEUTROPHILS % 78.3 % (40.0-76.0); RED BLOOD CELL COUNT 3.42 mill/uL (4.2-5.4); RED CELL DISTRIBUTION WIDTH 18.6 % (11.6-14.6); WHITE BLOOD COUNT 8.2 x1000/uL (4.5-11.0)
[2023-09-17 05:45] LABS: CHLORIDE 108 mEq/L (98-107); POTASSIUM 5.4 mEq/L (3.5-5.1); SODIUM 138 mEq/L (136-145)
[2023-09-17 05:46] LABS: CALCIUM 9.8 mg/dL (8.7-10.4); CARBON DIOXIDE 29 mEq/L (21-32)
[2023-09-17 05:51] LABS: CREATININE 0.9 mg/dL (0.6-1.0); GLUCOSE 118 mg/dL (70-105); UREA NITROGEN BLOOD 26 mg/dL (9-23)
[2023-09-17 06:48] LABS: DIFFERENTIAL COMMENT 1
[2023-09-17 06:50] LABS: PLATELET 13 x1000/uL (130-400)
[2023-09-17] MEDS: SODIUM POLYSTYRENE SULFONATE 15 G/60 ML BOT NG NR (16:24)
[2023-09-18] VITALS (12 sets, daily range): BP systolic 128–161; BP diastolic 66–91; PULSE 75–112; RESP 14–25; TEMP 97.5–99.5
[2023-09-19] VITALS (10 sets, daily range): BP systolic 129–153; BP diastolic 68–89; PULSE 67–86; RESP 15–23; TEMP 97.6–99.9
[2023-09-19] MEDS: ACETAMINOPHEN 325MG TABLET PO PRN (01:17)
[2023-09-19] MEDS: SODIUM CHLORIDE 3% FOR INH 4ML NEB INH SCH (04:00)
[2023-09-19 07:47] LABS: CALCIUM 9.7 mg/dL (8.7-10.4)
[2023-09-19 07:48] LABS: BASOPHILS % 0.8 % (0.0-2.0); EOSINOPHILS % 1.6 % (0.0-5.0); HEMATOCRIT. 27.2 % (36.0-48.0); HEMOGLOBIN. 8.5 g/dL (12.0-16.0); MEAN CORPUSCULAR HEMOGLOBIN 24.2 pg (28.0-32.0); MEAN CORPUSCULAR HGB CONC 31.1 g/dL (31.0-37.0); MEAN CORPUSCULAR VOLUME 77.8 fL (81.0-99.0); MEAN PLATELET VOLUME 12.7 fl (7.4-10.4); MONOCYTES % 7.9 % (2.0-8.0); NEUTROPHILS % 80.7 % (40.0-76.0); RED CELL DISTRIBUTION WIDTH 18.7 % (11.6-14.6); WHITE BLOOD COUNT 8.2 x1000/uL (4.5-11.0)
[2023-09-19 07:52] LABS: CREATININE 1.1 mg/dL (0.6-1.0)
[2023-09-19 08:06] LABS: DIFFERENTIAL COMMENT 1
[2023-09-19] MEDS: METOPROLOL TARTRATE 50MG TABLET NG SCH (09:45)
[2023-09-19] MEDS: FUROSEMIDE 40MG/4ML VIAL IVP NR (09:46)
[2023-09-19] MEDS ORDERED: CLONIDINE 0.1MG TABLET NG PRN (11:45)
[2023-09-19] MEDS ORDERED: ACETAMINOPHEN 325MG TABLET NG PRN (11:45)
[2023-09-19] MEDS: HYDRALAZINE HCL 25MG TABLET NG SCH (14:00)
[2023-09-19 14:46] LABS: PLATELET 16 x1000/uL (130-400)
[2023-09-19] MEDS ORDERED: DOCUSATE SODIUM SUGAR FREE 100MG/10ML UDC GT PRN (15:15)
[2023-09-19] MEDS: FERROUS SULFATE 300MG/5ML UDC GT SCH (17:09)
[2023-09-20] VITALS (11 sets, daily range): BP systolic 104–145; BP diastolic 69–94; PULSE 77–120; RESP 17–25; TEMP 97.5–98.5
[2023-09-20] MEDS: ACETAMINOPHEN 650MG/20.3ML UDC GT PRN (18:49)
[2023-09-21] VITALS (10 sets, daily range): BP systolic 123–155; BP diastolic 70–93; PULSE 77–112; RESP 18–36; TEMP 97–98.1
[2023-09-21 11:08] LABS: POTASSIUM 4.4 mEq/L (3.5-5.1)
[2023-09-21 11:09] LABS: CALCIUM 9.9 mg/dL (8.7-10.4)
[2023-09-21 11:14] LABS: CREATININE 1.2 mg/dL (0.6-1.0); HEMATOCRIT 29.6 % (36.0-48.0); HEMOGLOBIN 9.1 g/dL (12.0-16.0); MEAN CORPUSCULAR HEMOGLOBIN 24.3 pg (28.0-32.0); MEAN CORPUSCULAR HGB CONC 30.8 g/dL (31.0-37.0); RED BLOOD CELL COUNT 3.75 mill/uL (4.2-5.4); RED CELL DISTRIBUTION WIDTH 18.7 % (11.6-14.6); WHITE BLOOD COUNT 10.3 x1000/uL (4.5-11.0)
[2023-09-21] MEDS: CEFEPIME 1GM/50ML 50 ML IV SCH (12:00)
[2023-09-21 12:11] LABS: PLATELET 9 x1000/uL (130-400)
[2023-09-21] MEDS ORDERED: PIPERACILLIN/TAZO 3.375G/50ML 50 ML IV SCH (14:00)
[2023-09-21] MEDS: DEXTROSE 5% WATER 1,000 ML IV ONE (17:18)
[2023-09-21] MEDS: GUAIFENESIN 200MG/10ML SUGAR FREE UDC PO PRN (18:50)
[2023-09-21] MEDS: LEVETIRACETAM 500MG/5ML CUP NG SCH (21:41)
[2023-09-22] VITALS (11 sets, daily range): BP systolic 111–158; BP diastolic 73–102; PULSE 76–108; RESP 15–23; TEMP 97–98.5
[2023-09-22 07:27] LABS: HEMATOCRIT 30.9 % (36.0-48.0); HEMOGLOBIN 9.4 g/dL (12.0-16.0); MEAN CORPUSCULAR HEMOGLOBIN 24.2 pg (28.0-32.0); MEAN CORPUSCULAR HGB CONC 30.4 g/dL (31.0-37.0); MEAN CORPUSCULAR VOLUME 79.5 fL (81.0-99.0); RED BLOOD CELL COUNT 3.89 mill/uL (4.2-5.4); RED CELL DISTRIBUTION WIDTH 20.1 % (11.6-14.6); WHITE BLOOD COUNT 10.2 x1000/uL (4.5-11.0)
[2023-09-22 08:13] LABS: CARBON DIOXIDE 25 mEq/L (21-32); CHLORIDE 105 mEq/L (98-107); POTASSIUM 4.1 mEq/L (3.5-5.1); SODIUM 139 mEq/L (136-145)
[2023-09-22 08:17] LABS: CALCIUM 9.9 mg/dL (8.7-10.4)
[2023-09-22 08:18] LABS: CREATININE 1.2 mg/dL (0.6-1.0); GLUCOSE 92 mg/dL (70-105)
[2023-09-22 08:19] LABS: UREA NITROGEN BLOOD 26 mg/dL (9-23)
[2023-09-22 08:21] LABS: PHOSPHORUS 2.7 mg/dL (2.5-4.9)
[2023-09-22 10:14] LABS: PLATELET 9 x1000/uL (130-400)
[2023-09-22] MEDS: DEXTROSE 5% WATER 1,000 ML IV SCH (11:53)
[2023-09-23] VITALS (12 sets, daily range): BP systolic 116–147; BP diastolic 63–109; PULSE 77–108; RESP 11–27; TEMP 97.2–98.6
[2023-09-23 06:56] LABS: HEMATOCRIT 30.2 % (36.0-48.0); HEMOGLOBIN 9.2 g/dL (12.0-16.0); MEAN CORPUSCULAR HEMOGLOBIN 24.3 pg (28.0-32.0); MEAN CORPUSCULAR HGB CONC 30.5 g/dL (31.0-37.0); MEAN CORPUSCULAR VOLUME 79.8 fL (81.0-99.0); RED BLOOD CELL COUNT 3.78 mill/uL (4.2-5.4); RED CELL DISTRIBUTION WIDTH 19.7 % (11.6-14.6); WHITE BLOOD COUNT 10.3 x1000/uL (4.5-11.0)
[2023-09-23 07:13] LABS: CARBON DIOXIDE 25 mEq/L (21-32); CHLORIDE 104 mEq/L (98-107); POTASSIUM 3.7 mEq/L (3.5-5.1); SODIUM 137 mEq/L (136-145)
[2023-09-23 07:14] LABS: CALCIUM 9.7 mg/dL (8.7-10.4)
[2023-09-23 07:19] LABS: CREATININE 1.2 mg/dL (0.6-1.0); GLUCOSE 128 mg/dL (70-105); UREA NITROGEN BLOOD 24 mg/dL (9-23)
[2023-09-23 07:21] LABS: PHOSPHORUS 2.2 mg/dL (2.5-4.9)
[2023-09-23 07:40] LABS: PLATELET 13 x1000/uL (130-400)
[2023-09-23] MEDS: POTASSIUM PHOSPHATE 15 MMOL in DEXT 5% WATER 245 ML IV NR (13:19)
[2023-09-23] MEDS: CEFEPIME 2GM/100ML 100 ML IV SCH (21:18)
[2023-09-24] VITALS (12 sets, daily range): BP systolic 103–142; BP diastolic 60–102; PULSE 80–117; RESP 18–29; TEMP 97.1–99.2
[2023-09-24 10:11] LABS: HEMATOCRIT. 28.7 % (36.0-48.0); MEAN CORPUSCULAR HEMOGLOBIN 24.3 pg (28.0-32.0); MEAN CORPUSCULAR HGB CONC 31.2 g/dL (31.0-37.0); MEAN CORPUSCULAR VOLUME 77.8 fL (81.0-99.0); RED BLOOD CELL COUNT 3.69 mill/uL (4.2-5.4); RED CELL DISTRIBUTION WIDTH 20.7 % (11.6-14.6); WHITE BLOOD COUNT 8.8 x1000/uL (4.5-11.0)
[2023-09-24 10:25] LABS: DIFFERENTIAL COMMENT 1
[2023-09-24 10:39] LABS: CALCIUM 9.5 mg/dL (8.7-10.4)
[2023-09-24 10:44] LABS: CREATININE 1.1 mg/dL (0.6-1.0)
[2023-09-24 11:05] LABS: PLATELET 9 x1000/uL (130-400)
[2023-09-24 11:20] LABS: PLATELET ESTIMATE MARKEDLY DECREASED
[2023-09-24 11:21] LABS: ANISOCYTOSIS 2+; MICROCYTOSIS 1+
[2023-09-24 11:22] LABS: GIANT PLATELETS FEW
[2023-09-24] MEDS: LEVETIRACETAM 500MG/5ML CUP NG SCH (21:24)
[2023-09-25] VITALS (14 sets, daily range): BP systolic 114–175; BP diastolic 73–109; PULSE 78–117; RESP 18–28; TEMP 97.1–98.7
[2023-09-25 07:47] LABS: HEMATOCRIT. 29.1 % (36.0-48.0); MEAN CORPUSCULAR HEMOGLOBIN 24.3 pg (28.0-32.0); MEAN CORPUSCULAR HGB CONC 30.7 g/dL (31.0-37.0); MEAN PLATELET VOLUME 10.9 fl (7.4-10.4); RED BLOOD CELL COUNT 3.69 mill/uL (4.2-5.4); RED CELL DISTRIBUTION WIDTH 20.6 % (11.6-14.6)
[2023-09-25 07:48] LABS: CALCIUM 9.7 mg/dL (8.7-10.4)
[2023-09-25 07:53] LABS: CREATININE 1.1 mg/dL (0.6-1.0)
[2023-09-25 09:16] LABS: DIFFERENTIAL COMMENT 1
[2023-09-25 09:20] LABS: PLATELET 11 x1000/uL (130-400)
[2023-09-25 12:35] LABS: ANISOCYTOSIS 3+
[2023-09-25 12:36] LABS: PLATELET ESTIMATE MARKEDLY DECREASED
[2023-09-26] VITALS (12 sets, daily range): BP systolic 114–146; BP diastolic 65–130; PULSE 75–116; RESP 17–27; TEMP 96–98
[2023-09-26] MEDS: ACETAMINOPHEN 650MG/20.3ML UDC NG PRN (02:26)
[2023-09-26 05:49] LABS: CALCIUM 9.6 mg/dL (8.7-10.4)
[2023-09-26 05:54] LABS: CREATININE 1.1 mg/dL (0.6-1.0)
[2023-09-26 06:30] LABS: HEMATOCRIT. 28.8 % (36.0-48.0); HEMOGLOBIN. 8.8 g/dL (12.0-16.0); MEAN CORPUSCULAR HEMOGLOBIN 24.5 pg (28.0-32.0); MEAN CORPUSCULAR HGB CONC 30.6 g/dL (31.0-37.0); MEAN CORPUSCULAR VOLUME 80.2 fL (81.0-99.0); RED CELL DISTRIBUTION WIDTH 21.6 % (11.6-14.6)
[2023-09-26 06:36] LABS: DIFFERENTIAL COMMENT 1
[2023-09-26 06:57] LABS: PLATELET 9 x1000/uL (130-400)
[2023-09-26 06:58] LABS: MEAN PLATELET VOLUME 10.6 fl (7.4-10.4)
[2023-09-26] MEDS: LORAZEPAM 2MG/ML INJ IV NR (10:00)
[2023-09-26 16:03] LABS: ANISOCYTOSIS 2+; PLATELET ESTIMATE MARKEDLY DECREASED
[2023-09-26] MEDS: LEVETIRACETAM 500MG PREMIX 100 ML IV NR (17:31)
[2023-09-26] MEDS: LEVETIRACETAM 500MG/5ML CUP NG SCH (20:28)
[2023-09-27] VITALS (12 sets, daily range): BP systolic 116–150; BP diastolic 67–100; PULSE 81–147; RESP 19–30; TEMP 96.2–98.1
[2023-09-27 05:56] LABS: BASOPHILS % 0.4 % (0.0-2.0); EOSINOPHILS % 4.4 % (0.0-5.0); HEMATOCRIT. 31.9 % (36.0-48.0); HEMOGLOBIN. 9.6 g/dL (12.0-16.0); LYMPHOCYTES % 8.2 % (20.0-50.0); MEAN CORPUSCULAR HEMOGLOBIN 24.1 pg (28.0-32.0); MEAN CORPUSCULAR HGB CONC 30.1 g/dL (31.0-37.0); MEAN CORPUSCULAR VOLUME 80.1 fL (81.0-99.0); MONOCYTES % 8.8 % (2.0-8.0); NEUTROPHILS % 78.2 % (40.0-76.0); RED BLOOD CELL COUNT 3.98 mill/uL (4.2-5.4); RED CELL DISTRIBUTION WIDTH 20.8 % (11.6-14.6); WHITE BLOOD COUNT 6.8 x1000/uL (4.5-11.0)
[2023-09-27 05:58] LABS: CALCIUM 9.9 mg/dL (8.7-10.4); POTASSIUM 4.3 mEq/L (3.5-5.1)
[2023-09-27 06:04] LABS: CREATININE 1.1 mg/dL (0.6-1.0)
[2023-09-27 08:14] LABS: DIFFERENTIAL COMMENT 1
[2023-09-27 08:19] LABS: PLATELET 20 x1000/uL (130-400)
[2023-09-27] MEDS: LORAZEPAM 2MG/ML INJ IV PRN (13:39)
[2023-09-28] VITALS (18 sets, daily range): BP systolic 101–152; BP diastolic 60–96; PULSE 73–154; RESP 17–31; TEMP 96.9–99.1
[2023-09-28] MEDS: BLOOD SUGAR DIAGNOSTIC STRIP TEST SCH (05:39)
[2023-09-28 06:07] LABS: BASOPHILS % 0.7 % (0.0-2.0); EOSINOPHILS % 2.7 % (0.0-5.0); HEMATOCRIT. 28.7 % (36.0-48.0); HEMOGLOBIN. 8.9 g/dL (12.0-16.0); LYMPHOCYTES % 7.4 % (20.0-50.0); MEAN CORPUSCULAR HEMOGLOBIN 24.3 pg (28.0-32.0); MEAN CORPUSCULAR HGB CONC 30.9 g/dL (31.0-37.0); MEAN CORPUSCULAR VOLUME 78.8 fL (81.0-99.0); MEAN PLATELET VOLUME 9.3 fl (7.4-10.4); MONOCYTES % 11.1 % (2.0-8.0); NEUTROPHILS % 78.1 % (40.0-76.0); RED BLOOD CELL COUNT 3.65 mill/uL (4.2-5.4); RED CELL DISTRIBUTION WIDTH 20.8 % (11.6-14.6)
[2023-09-28 06:11] LABS: POTASSIUM 4.4 mEq/L (3.5-5.1)
[2023-09-28 06:12] LABS: CALCIUM 9.8 mg/dL (8.7-10.4)
[2023-09-28 06:17] LABS: CREATININE 1.1 mg/dL (0.6-1.0)
[2023-09-28 06:42] LABS: DIFFERENTIAL COMMENT 1; PLATELET 33 x1000/uL (130-400)
[2023-09-29] VITALS (14 sets, daily range): BP systolic 124–149; BP diastolic 72–122; PULSE 71–132; RESP 18–24; TEMP 97–98.9
[2023-09-29 04:55] LABS: HEMATOCRIT. 30.7 % (36.0-48.0); HEMOGLOBIN. 9.2 g/dL (12.0-16.0); MEAN CORPUSCULAR HGB CONC 30.1 g/dL (31.0-37.0); MEAN CORPUSCULAR VOLUME 79.8 fL (81.0-99.0); MEAN PLATELET VOLUME 13.5 fl (7.4-10.4); RED BLOOD CELL COUNT 3.84 mill/uL (4.2-5.4); RED CELL DISTRIBUTION WIDTH 21.6 % (11.6-14.6); WHITE BLOOD COUNT 7.3 x1000/uL (4.5-11.0)
[2023-09-29 04:59] LABS: DIFFERENTIAL COMMENT 1
[2023-09-29 05:02] LABS: PLATELET 47 x1000/uL (130-400)
[2023-09-29 05:08] LABS: POTASSIUM 4.4 mEq/L (3.5-5.1)
[2023-09-29 05:09] LABS: CALCIUM 9.9 mg/dL (8.7-10.4)
[2023-09-29 05:14] LABS: CREATININE 1.2 mg/dL (0.6-1.0)
[2023-09-29 05:29] LABS: ATYPICAL LYMPHOCYTES 1; GIANT PLATELETS 2+; PLATELET ESTIMATE MARKEDLY DECREASED
[2023-09-29 05:30] LABS: OVALOCYTES 2+; TARGET CELLS 2+; TEAR DROP CELLS 1+
[2023-09-30] VITALS (12 sets, daily range): BP systolic 124–164; BP diastolic 72–102; PULSE 70–96; RESP 17–22; TEMP 97.2–98.3
[2023-09-30 03:17] LABS: POTASSIUM 4.9 mEq/L (3.5-5.1)
[2023-09-30 03:18] LABS: BASOPHILS % 0.9 % (0.0-2.0); EOSINOPHILS % 1.7 % (0.0-5.0); HEMATOCRIT. 33.2 % (36.0-48.0); HEMOGLOBIN. 10.1 g/dL (12.0-16.0); LYMPHOCYTES % 7.2 % (20.0-50.0); MEAN CORPUSCULAR HEMOGLOBIN 24.2 pg (28.0-32.0); MEAN CORPUSCULAR HGB CONC 30.5 g/dL (31.0-37.0); MEAN CORPUSCULAR VOLUME 79.3 fL (81.0-99.0); MONOCYTES % 8.7 % (2.0-8.0); NEUTROPHILS % 81.5 % (40.0-76.0); RED BLOOD CELL COUNT 4.18 mill/uL (4.2-5.4); RED CELL DISTRIBUTION WIDTH 21.9 % (11.6-14.6); WHITE BLOOD COUNT 8.9 x1000/uL (4.5-11.0)
[2023-09-30 03:19] LABS: CALCIUM 10.3 mg/dL (8.7-10.4)
[2023-09-30 03:23] LABS: CREATININE 1.3 mg/dL (0.6-1.0)
[2023-09-30 03:33] LABS: INR 1.1; PROTHROMBIN TIME 11.9 sec (9.6-11.0)
[2023-09-30 03:50] LABS: DIFFERENTIAL COMMENT 1; PLATELET 13 x1000/uL (130-400)
[2023-09-30] MEDS: METOPROLOL TARTRATE 50MG TABLET PO NR (07:07)
[2023-09-30 12:05] LABS: HEMATOCRIT. 34.2 % (36.0-48.0); HEMOGLOBIN. 10.1 g/dL (12.0-16.0); MEAN CORPUSCULAR HGB CONC 29.5 g/dL (31.0-37.0); MEAN CORPUSCULAR VOLUME 81.2 fL (81.0-99.0); RED BLOOD CELL COUNT 4.22 mill/uL (4.2-5.4); WHITE BLOOD COUNT 10.5 x1000/uL (4.5-11.0)
[2023-09-30 12:15] LABS: DIFFERENTIAL COMMENT 1
[2023-09-30 13:29] LABS: PLATELET 56 x1000/uL (130-400)
[2023-09-30 13:30] LABS: MEAN PLATELET VOLUME 14.3 fl (7.4-10.4)
[2023-09-30 13:33] LABS: ANISOCYTOSIS 3+; NUCLEATED RED BLOOD CELLS 3 /100 WBC; PLATELET ESTIMATE MARKEDLY DECREASED
[2023-09-30] MEDS ORDERED: PROPOFOL 200MG/20ML VIAL IV ONE (16:51)
[2023-09-30] MEDS ORDERED: LIDOCAINE HCL 1% 10 MG/ML 10ML VIAL ONE (17:09)
[2023-10-01] VITALS (12 sets, daily range): BP systolic 102–154; BP diastolic 59–115; PULSE 75–155; RESP 13–24; TEMP 96.9–97.2
[2023-10-01] MEDS: METOCLOPRAMIDE HCL 10MG/2ML VIAL IV SCH (05:59)
[2023-10-01 07:40] LABS: HEMATOCRIT. 35.2 % (36.0-48.0); HEMOGLOBIN. 10.3 g/dL (12.0-16.0); MEAN CORPUSCULAR HEMOGLOBIN 24.2 pg (28.0-32.0); MEAN CORPUSCULAR HGB CONC 29.1 g/dL (31.0-37.0); MEAN CORPUSCULAR VOLUME 82.9 fL (81.0-99.0); RED BLOOD CELL COUNT 4.25 mill/uL (4.2-5.4); RED CELL DISTRIBUTION WIDTH 22.8 % (11.6-14.6); WHITE BLOOD COUNT 7.7 x1000/uL (4.5-11.0)
[2023-10-01 07:43] LABS: CALCIUM 10.3 mg/dL (8.7-10.4)
[2023-10-01 07:48] LABS: CREATININE 1.4 mg/dL (0.6-1.0)
[2023-10-01 07:55] LABS: DIFFERENTIAL COMMENT 1
[2023-10-01] MEDS: METOPROLOL TARTRATE 50MG TABLET NG SCH (08:21)
[2023-10-01 09:37] LABS: NUCLEATED RED BLOOD CELLS 1 /100 WBC
[2023-10-01 09:38] LABS: ANISOCYTOSIS 3+; GIANT PLATELETS FEW
[2023-10-01 09:39] LABS: HYPOCHROMASIA 1+
[2023-10-01 09:40] LABS: MEAN PLATELET VOLUME 16.3 fl (7.4-10.4); PLATELET 82 x1000/uL (130-400)
[2023-10-01 13:53] LABS: PLATELET ESTIMATE DECREASED
[2023-10-01 14:27] LABS: CREATINE KINASE 20 IU/L (34-145)
[2023-10-01] MEDS: SODIUM CHLORIDE 0.9% 1,000 ML IV SCH (15:36)
[2023-10-01] MEDS: MORPHINE SULFATE 250 MG in DEXT 5% WATER 225 ML IV PRN (18:35)
[2023-10-01] MEDS ORDERED: METOPROLOL TARTRATE 50MG TABLET NG SCH (21:00)
[2023-10-02] VITALS (7 sets, daily range): BP systolic 52–91; BP diastolic 44–79; PULSE 135–156; RESP 7–14; TEMP 95.8–97
== END 2023-10-02 15:20 | DRG 870 ==
LOC: ER 10:52 → CVICU 12:37 → EDBEDREQ 12:39 → EDBEDREQSVC 19:44 → 5EST 09-17 18:45
PROVIDERS: ADMIT Internal Medicine; ATTEND Internal Medicine
PROC: 5A1955Z Respiratory Ventilation, Greater than 96 Consecutive Hours (ICD-10-PCS; principal; 2023-09-05)
PROC: 0BH17EZ Insertion of Endotracheal Airway into Trachea, Via Natural or Artificial Opening (ICD-10-PCS; 2023-09-05)
PROC: 06HY33Z Insertion of Infusion Device into Lower Vein, Percutaneous Approach (ICD-10-PCS; 2023-09-05)
PROC: 05H633Z Insertion of Infusion Device into Left Subclavian Vein, Percutaneous Approach (ICD-10-PCS; 2023-09-09)
PROC: 4A10X4Z Monitoring of Central Nervous Electrical Activity, External Approach (ICD-10-PCS; 2023-09-09)
PROC: 5A0935A Assistance with Respiratory Ventilation, Less than 24 Consecutive Hours, High Flow/Velocity Cannula (ICD-10-PCS; 2023-09-15)
PROC: 4A10X4Z Monitoring of Central Nervous Electrical Activity, External Approach (ICD-10-PCS; 2023-09-26)
PROC: 30233R1 Transfusion of Nonautologous Platelets into Peripheral Vein, Percutaneous Approach (ICD-10-PCS; 2023-09-28)
PROC: 0DB68ZX Excision of Stomach, Via Natural or Artificial Opening Endoscopic, Diagnostic (ICD-10-PCS; 2023-09-30)
PROC: 0DB78ZX Excision of Stomach, Pylorus, Via Natural or Artificial Opening Endoscopic, Diagnostic (ICD-10-PCS; 2023-09-30)
PROC: 0DH63UZ Insertion of Feeding Device into Stomach, Percutaneous Approach (ICD-10-PCS; 2023-09-30)
DX: A41.9 Sepsis, unspecified organism (principal); J96.01 Acute respiratory failure with hypoxia; G93.41 Metabolic encephalopathy; I21.A1 Myocardial infarction type 2; I33.0 Acute and subacute infective endocarditis; N18.6 End stage renal disease; J69.0 Pneumonitis due to inhalation of food and vomit; N39.0 Urinary tract infection, site not specified; I42.9 Cardiomyopathy, unspecified; I47.10 Supraventricular tachycardia, unspecified; I82.411 Acute embolism and thrombosis of right femoral vein; I82.501 Chronic embolism and thrombosis of unspecified deep veins of right lower extremity; I13.2 Hypertensive heart and chronic kidney disease with heart failure and with stage 5 chronic kidney disease, or end stage renal disease; E46 Unspecified protein-calorie malnutrition; N17.9 Acute kidney failure, unspecified; I82.622 Acute embolism and thrombosis of deep veins of left upper extremity; I50.42 Chronic combined systolic (congestive) and diastolic (congestive) heart failure; R56.9 Unspecified convulsions; Z99.2 Dependence on renal dialysis; D50.9 Iron deficiency anemia, unspecified; I16.0 Hypertensive urgency; Z66 Do not resuscitate; I48.0 Paroxysmal atrial fibrillation; C50.912 Malignant neoplasm of unspecified site of left female breast; E83.52 Hypercalcemia; D69.6 Thrombocytopenia, unspecified; E88.09 Other disorders of plasma-protein metabolism, not elsewhere classified; Z68.23 Body mass index [BMI] 23.0-23.9, adult; I25.10 Atherosclerotic heart disease of native coronary artery without angina pectoris; B96.20 Unspecified Escherichia coli [E. coli] as the cause of diseases classified elsewhere; K29.70 Gastritis, unspecified, without bleeding; R13.10 Dysphagia, unspecified; K21.9 Gastro-esophageal reflux disease without esophagitis; Z79.01 Long term (current) use of anticoagulants; Z79.899 Other long term (current) drug therapy; Z95.2 Presence of prosthetic heart valve; Z92.3 Personal history of irradiation; Z85.3 Personal history of malignant neoplasm of breast; Z86.011 Personal history of benign neoplasm of the brain; Z95.0 Presence of cardiac pacemaker; Z86.73 Personal history of transient ischemic attack (TIA), and cerebral infarction without residual deficits; Z93.1 Gastrostomy status
CPT/HCPCS: 31500; 36415; 36573; 36600; 70553; 71045; 74018; 76700; 76770; 80048; 80053; 80076; 80202; 80305; 81003; 82140; 82330; 82375; 82550; 82553; 82805; 82962; 83605; 83615; 83735; 83880; 83970; 84100; 84145; 84484; 85025; 85027; 86022; 86850; 86900; 87070; 87077; 87106; 87186; 88305; 88312; 88313; 92610; 93005; 93308; 93880; 93970; 93971; 94002; 94003; 94640; 95816; 97161; 97165; 97530; 99291; A6261; A9577; C1725; C9113; J0282; J0360; J0690; J0692; J0885; J1160; J1644; J1940; J1953; J2060; J2185; J2270; J2310; J2405; J2560; J2704; J2765; J3370; J3475; J3490; J7050; J7060; J7070; P9034; A4315